=== PATIENT | female | born 1930 ===

== ENCOUNTER 2018-01-23 17:49 | Inpatient (IN) | payer MEDICARE, OTHER ==
[2018-01-23 17:50] VITALS: BMI 23.4
--- NOTE | 2018-01-23 18:47 | C.PDOC ---
History Of Present Illness 87 y/o F c PMHx pacemaker p/w back pain, headache, nausea, NBNB vomiting, and lightheadedness x 1 month. Patient states these are the symptoms she gets when her pacemaker is ready to be changed. Note that she has had 2 falls at home due to this lightheadedness. She notes she is due for changing it in about 4 days. Denies fever, dyspnea, chest pain, leg swelling. Time Seen by Provider: 01/23/18 18:24 Chief Complaint (Nursing): GI Problem Past Medical History Vital Signs: Last Vital Signs Temp 99.0 F 01/23/18 18:01 Pulse 65 01/23/18 18:01 Resp 18 01/23/18 18:01 BP 182/89 H 01/23/18 18:01 Pulse Ox 93 L 01/23/18 18:01 - Medical History PMH: Atrial Fibrillation, HTN, Hypercholesterolemia Denies: Arthritis, Asthma, CHF, COPD, Diabetes, Seizures Surgical History: Pacemaker (sinus node dysfunction) Denies: CABG Family History: States: CAD - Social History Hx Alcohol Use: No Hx Substance Use: No Review Of Systems Except As Marked, All Systems Reviewed And Found Negative. Constitutional: Negative for: Fever Cardiovascular: Negative for: Chest Pain Physical Exam - Physical Exam Additional Physical Exam Comments: Constitutional: No acute distress. Head: Normocephalic. Atraumatic. Eyes: PERRL. ENT: Moist mucous membranes. Neck: Supple. Cardiovascular: Regular rate. Radial pulse 2+ bilaterally. Chest: No tenderness. Respiratory: Normal breath sounds B/L. GI: Soft. Nontender. Nondistended. Back: No CVA tenderness. Musculoskeletal: No tenderness or swelling of extremities. Bilateral pitting edema. Skin: No rash. Neurologic: Alert, no focal deficit. ED Course And Treatment - Laboratory Results Result Diagrams: 01/23/18 18:56 01/23/18 18:56 O2 Sat by Pulse Oximetry: 93 Medical Decision Making Medical Decision Making: EKG Ventricularly paced rhythm, 65 bpm. CXR no acute disease. Dr. Moreno recommends Dr. Jensen for consultation. Dr. Jensen accepts consult, Dr. Pino accepts patient to his service. Disposition - Disposition Disposition: HOSPITALIZED Disposition Time: 19:05 Condition: GUARDED - Clinical Impression Clinical Impression: Frequent falls, Pacemaker at end of battery life
[2018-01-23 19:02] LABS: BASO # 0.1 K/uL (0.0-0.2); BASO % 1.9 % (0.0-2.0); EOS # 0.1 K/uL (0.0-0.7); EOS % 2.1 % (0.0-4.0); HEMOGLOBIN 12.5 g/dL (11.0-16.0); LYMPH # 1.1 K/uL (1.0-4.3); LYMPH % 27.6 % (20.0-40.0); MEAN CELL VOLUME 91.4 fL (81.0-99.0); MEAN CORPUSCULAR HEMOGLOBIN 28.9 pg (27.0-31.0); MEAN CORPUSCULAR HGB CONC 31.6 g/dL (33.0-37.0); MEAN PLATELET VOLUME 8.9 fL (7.2-11.7); MONO # 0.5 K/uL (0.0-0.8); MONO % 12.1 % (0.0-10.0); NEUT # 2.2 K/uL (1.8-7.0); NEUT % 56.3 % (50.0-75.0); NRBC % 0.6 % (0.0-2.0); RBC 4.35 Mil/uL (3.80-5.20); RED CELL DISTRIBUTION WIDTH 18.4 % (11.5-14.5); WHITE BLOOD COUNT 3.9 K/uL (4.8-10.8)
[2018-01-23 19:10] LABS: INR 1.2; PROTHROMBIN TIME 13.2 SECONDS (9.7-12.2)
[2018-01-23 19:19] LABS: ALB/GLOB RATIO 1.4 (1.0-2.1); ALBUMIN 4.3 g/dL (3.5-5.0); CALCIUM 9.5 mg/dl (8.6-10.4)
[2018-01-23 19:28] LABS: SQUAMOUS EPITHIAL < 1 /hpf (0-5); URINE BACTERIA OCC (<OCC); URINE BILIRUBIN NEGATIVE (NEGATIVE); URINE BLOOD 2+ (NEGATIVE); URINE CLARITY Clear (Clear); URINE COLOR Yellow (YELLOW); URINE GLUCOSE (UA) NORMAL (Normal); URINE LEUKOCYTE ESTERASE TRACE Leu/uL (Negative); URINE PROTEIN 2+ mg/dL (NEGATIVE); URINE UROBILINOGEN NORMAL mg/dL (0.2-1.0)
[2018-01-23 19:28] LABS: CK-MB 2.28 ng/mL (0.0-3.38); TROPONIN I 0.031 ng/mL (0.00-0.120)
[2018-01-24] MEDS: Enoxaparin 40 mg Syringe SC SCH (09:13)
[2018-01-24] MEDS ORDERED: Ergocalciferol 50,000 Intl Units Cap PO SCH (10:00)
[2018-01-24] MEDS ORDERED: Home Med 1 UNIT (Alendronate Sodium [Binosto] 70 MG) PO SCH (10:00)
--- NOTE | 2018-01-24 16:52 | RAD ---
Date of service: 01/23/2018 HISTORY: r/o PNA COMPARISON: No prior. FINDINGS: LUNGS: Right lower lobe infiltrate suspicious for pneumonia. PLEURA: No significant pleural effusion identified, no pneumothorax apparent. CARDIOVASCULAR: Cardiomegaly. No evidence of acute, significant cardiovascular disease. Position/ configuration of pacemaker Satisfactory. OSSEOUS STRUCTURES: No significant abnormalities. VISUALIZED UPPER ABDOMEN: Normal. OTHER FINDINGS: None. IMPRESSION: Right lower lobe infiltrate suspicious for pneumonia.
--- NOTE | 2018-01-25 06:53 | CP.PCM.PN ---
Subjective - Date & Time of Evaluation Date of Evaluation: 01/24/18 Time of Evaluation: 14:10 - Subjective Subjective: 87 y/o F c PMHx pacemaker p/w back pain, headache, nausea, NBNB vomiting, and lightheadedness x 1 month. Patient states these are the symptoms she gets when her pacemaker is ready to be changed. Note that she has had 2 falls at home due to this lightheadedness. She notes she is due for changing it in about 4 days. Denies fever, dyspnea, chest pain, leg swelling. - Medical History PMH: Atrial Fibrillation, HTN, Hypercholesterolemia Denies: Arthritis, Asthma, CHF, COPD, Diabetes, Seizures Surgical History: Pacemaker (sinus node dysfunction) Denies: CABG Family History: States: CAD - Social History Hx Alcohol Use: No Hx Substance Use: No Review Of Systems Except As Marked, All Systems Reviewed And Found Negative. Constitutional: Negative for: Fever Cardiovascular: Negative for: Chest Pain Physical Exam - Physical Exam Additional Physical Exam Comments: Constitutional: No acute distress. Head: Normocephalic. Atraumatic. Eyes: PERRL. ENT: Moist mucous membranes. Neck: Supple. Cardiovascular: Regular rate. Radial pulse 2+ bilaterally. Chest: No tenderness. Respiratory: Normal breath sounds B/L. GI: Soft. Nontender. Nondistended. Back: No CVA tenderness. Musculoskeletal: No tenderness or swelling of extremities. Bilateral pitting edema. Skin: No rash. Neurologic: Alert, no focal deficit. Objective - Vital Signs/Intake and Output Vital Signs (last 24 hours): Temp Pulse Resp BP Pulse Ox 98.1 F 64 20 160/93 H 97 01/25/18 04:25 01/25/18 04:25 01/25/18 04:25 01/25/18 04:25 01/25/18 04:25 Intake and Output: 01/24/18 01/25/18 18:59 06:59 Intake Total 200 120 Balance 200 120 - Medications Medications: Current Medications Amlodipine Besylate (Norvasc) 10 mg PO DAILY [facility] Last Admin: 01/24/18 09:13 Dose: 10 mg Atenolol (Tenormin) 25 mg PO DAILY [facility] Last Admin: 01/24/18 09:13 Dose: 25 mg Enoxaparin Sodium (Lovenox) 40 mg SC DAILY [facility] Last Admin: 01/24/18 09:13 Dose: 40 mg Ergocalciferol (Drisdol 50,000 Intl Units Cap) 1 cap PO QWK [facility] Last Admin: 01/24/18 09:13 Dose: 1 cap Hydrochlorothiazide (Microzide) 12.5 mg PO DAILY [facility] Last Admin: 01/24/18 09:13 Dose: 12.5 mg Losartan Potassium (Cozaar) 50 mg PO DAILY [facility] Last Admin: 01/24/18 09:13 Dose: 50 mg Pneumococcal Polyvalent Vaccine (Pneumovax 23 Vaccine) 0.5 ml IM .ONCE ONE Stop: 01/26/18 10:01 - Labs Labs: 01/23/18 18:56 01/23/18 18:56 PT 13.2 SECONDS (9.7-12.2) H 01/23/18 18:56 INR 1.2 01/23/18 18:56 APTT 33 SECONDS (21-34) 01/23/18 18:56 Assessment and Plan - Assessment and Plan (Free Text) Assessment: Patient is a difficult historian Family states due for Battery change January 27 Will contact EP-Dr. Junior Treadwell of HTN, Diasolic CHF ECHO 07/2016: Normal EF Stable
[2018-01-25] MEDS: Enoxaparin 40 mg Syringe SC SCH (09:55)
--- NOTE | 2018-01-25 21:37 | CP.PCM.PN ---
Subjective - Date & Time of Evaluation Date of Evaluation: 01/25/18 Time of Evaluation: 11:30 - Subjective Subjective: Patient seen and evaluated Denies chest pain and dyspnea - Medical History PMH: Atrial Fibrillation, HTN, Hypercholesterolemia Denies: Arthritis, Asthma, CHF, COPD, Diabetes, Seizures Surgical History: Pacemaker (sinus node dysfunction) Denies: CABG Family History: States: CAD - Social History Hx Alcohol Use: No Hx Substance Use: No Review Of Systems Except As Marked, All Systems Reviewed And Found Negative. Constitutional: Negative for: Fever Cardiovascular: Negative for: Chest Pain Physical Exam - Physical Exam Additional Physical Exam Comments: Constitutional: No acute distress. Head: Normocephalic. Atraumatic. Eyes: PERRL. ENT: Moist mucous membranes. Neck: Supple. Cardiovascular: Regular rate. Radial pulse 2+ bilaterally. Chest: No tenderness. Respiratory: Normal breath sounds B/L. GI: Soft. Nontender. Nondistended. Back: No CVA tenderness. Musculoskeletal: No tenderness or swelling of extremities. Bilateral pitting e adrian. Skin: No rash. Neurologic: Alert, no focal deficit. Assessment and Plan - Assessment and Plan (Free Text) Assessment: Hx of HTN, Diasolic CHF ECHO 07/2016: Normal EF Stable PPM battery change to be done during this admission Objective - Vital Signs/Intake and Output Vital Signs (last 24 hours): Temp Pulse Resp BP Pulse Ox 97.6 F 65 18 147/85 97 01/25/18 15:25 01/25/18 15:25 01/25/18 15:25 01/25/18 15:25 01/25/18 15:25 Intake and Output: 01/25/18 01/26/18 18:59 06:59 Intake Total 200 Balance 200 - Medications Medications: Current Medications Amlodipine Besylate (Norvasc) 10 mg PO DAILY [facility] Last Admin: 01/25/18 09:55 Dose: 10 mg Aspirin (Ecotrin) 81 mg PO DAILY [facility] Last Admin: 01/25/18 09:55 Dose: 81 mg Atenolol (Tenormin) 25 mg PO DAILY [facility] Last Admin: 01/25/18 09:55 Dose: 25 mg Enoxaparin Sodium (Lovenox) 40 mg SC DAILY [facility] Last Admin: 01/25/18 09:55 Dose: 40 mg Ergocalciferol (Drisdol 50,000 Intl Units Cap) 1 cap PO QWK [facility] Last Admin: 01/24/18 09:13 Dose: 1 cap Hydrochlorothiazide (Microzide) 12.5 mg PO DAILY [facility] Last Admin: 01/25/18 09:55 Dose: 12.5 mg Losartan Potassium (Cozaar) 50 mg PO DAILY [facility] Last Admin: 01/25/18 09:55 Dose: 50 mg Pneumococcal Polyvalent Vaccine (Pneumovax 23 Vaccine) 0.5 ml IM .ONCE ONE Stop: 01/26/18 10:01 - Labs Labs: 01/23/18 18:56 01/23/18 18:56 PT 13.2 SECONDS (9.7-12.2) H 01/23/18 18:56 INR 1.2 01/23/18 18:56 APTT 33 SECONDS (21-34) 01/23/18 18:56
--- NOTE | 2018-01-26 07:49 | HP ---
HISTORY OF PRESENT ILLNESS: The patient was admitted with chief complaint of dizziness, weakness, fatigue, low energy. pacemaker insertion . Patient came to the ER, advised admission. PHYSICAL EXAMINATION: GENERAL: The patient is awake, alert and oriented. VITAL SIGNS: Temperature 98, pulse 90. HEENT: Within normal limits. NECK: Supple. HEART: Regular. ABDOMEN: Soft. EXTREMITIES: No edema. IMPRESSION: functioning pacemaker. Admit to telemetry monitoring, cardiology evaluation for possible pacemaker change. Ko Pino MD
[2018-01-26] MEDS ORDERED: Pneumococcal 23-Valent Vaccine IM ONE (10:00)
--- NOTE | 2018-01-26 10:06 | CARD ---
APPROVED REPORT Date of service: 01/23/2018 EKG Measurement Heart [id number] <Conclusion> Ventricular-paced rhythm Abnormal ECG
--- NOTE | 2018-01-26 14:01 | CP.PCM.PN ---
Subjective - Date & Time of Evaluation Date of Evaluation: 01/26/18 Time of Evaluation: 09:10 - Subjective Subjective: PGY2 Medicine Note for Dr. Pino Patient seen and examined this morning at bedside. No acute events overnight. Patient states she is feeling better and only has mild back pain at this time. She is no longer experiencing light headedness, nausea, vomiting or a headache. Patient is pending pacemaker battery replacement this admission. Patient has no other complaints at this time. Objective - Vital Signs/Intake and Output Vital Signs (last 24 hours): Temp Pulse Resp BP Pulse Ox 97.6 F 65 20 152/84 H 97 01/26/18 07:35 01/26/18 07:35 01/26/18 07:35 01/26/18 07:35 01/26/18 07:35 Intake and Output: 01/26/18 01/26/18 06:59 18:59 Intake Total 450 Balance 450 - Medications Medications: Current Medications Amlodipine Besylate (Norvasc) 10 mg PO DAILY [facility] Last Admin: 01/26/18 10:30 Dose: 10 mg Aspirin (Ecotrin) 81 mg PO DAILY [facility] Last Admin: 01/26/18 10:30 Dose: 81 mg Atenolol (Tenormin) 25 mg PO DAILY [facility] Last Admin: 01/26/18 10:30 Dose: 25 mg Ergocalciferol (Drisdol 50,000 Intl Units Cap) 1 cap PO QWK [facility] Last Admin: 01/24/18 09:13 Dose: 1 cap Hydrochlorothiazide (Microzide) 12.5 mg PO DAILY [facility] Last Admin: 01/26/18 10:30 Dose: 12.5 mg Losartan Potassium (Cozaar) 50 mg PO DAILY [facility] Last Admin: 01/26/18 10:30 Dose: 50 mg - Labs Labs: 01/23/18 18:56 01/23/18 18:56 PT 13.2 SECONDS (9.7-12.2) H 01/23/18 18:56 INR 1.2 01/23/18 18:56 APTT 33 SECONDS (21-34) 01/23/18 18:56 - Constitutional Appears: Non-toxic, No Acute Distress - Head Exam Head Exam: NORMOCEPHALIC - Eye Exam Eye Exam: Normal appearance - ENT Exam ENT Exam: Mucous Membranes Moist - Neck Exam Neck Exam: absent: Lymphadenopathy - Respiratory Exam Respiratory Exam: Clear to Ausculation Bilateral, NORMAL BREATHING PATTERN. absent: Accessory Muscle Use, Rales, Rhonchi, Wheezes, Respiratory Distress - Cardiovascular Exam Cardiovascular Exam: REGULAR RHYTHM, +S1, +S2 - GI/Abdominal Exam GI & Abdominal Exam: Soft. absent: Distended, Firm, Guarding, Rigid, Tenderness - Extremities Exam Extremities Exam: absent: Calf Tenderness, Pedal Edema - Neurological Exam Neurological Exam: Alert, Awake, Oriented x3 - Psychiatric Exam Psychiatric exam: Normal Affect, Normal Mood - Skin Skin Exam: Dry, Warm Assessment and Plan - Assessment and Plan (Free Text) Plan: Malfunctioning Pacemaker Diastolic CHF (stable) Cardiology Consulted, Dr. Jensen * recommends battery change EP Cardiology Consulted. Dr. Pacheco ECHO 07/2016: normal EF Pro BNP 12,100 Patient is NPO at midnight for possible pacemaker battery change in the morning with Dr. Pacheco. Hypertension stable Continue Home Medications: * Norvasc 10mg PO daily * Aspirin 81mg PO daily * Atenolol 25mg PO daily * HCTZ 12.5mg PO daily * Losartan 50mg PO daily Transaminitis AST 63/ALT 82 (on 01/23) Alk Phos 147 (on 01/23) INR 1.2 no complaints at this time, will continue to monitor. All medical management per Dr. Alvarez Sifuentes Damon PGY2
--- NOTE | 2018-01-27 00:05 | CP.PCM.PN ---
Subjective - Date & Time of Evaluation Date of Evaluation: 01/26/18 Time of Evaluation: 17:20 - Subjective Subjective: Patient seen and evaluated No new cardiac events noted Objective - Vital Signs/Intake and Output Vital Signs (last 24 hours): Temp Pulse Resp BP Pulse Ox 97.9 F 67 20 147/81 96 01/26/18 15:05 01/26/18 16:00 01/26/18 15:05 01/26/18 15:05 01/26/18 15:05 - Medications Medications: Current Medications Amlodipine Besylate (Norvasc) 10 mg PO DAILY [facility] Last Admin: 01/26/18 10:30 Dose: 10 mg Aspirin (Ecotrin) 81 mg PO DAILY [facility] Last Admin: 01/26/18 10:30 Dose: 81 mg Atenolol (Tenormin) 25 mg PO DAILY [facility] Last Admin: 01/26/18 10:30 Dose: 25 mg Ergocalciferol (Drisdol 50,000 Intl Units Cap) 1 cap PO QWK [facility] Last Admin: 01/24/18 09:13 Dose: 1 cap Hydrochlorothiazide (Microzide) 12.5 mg PO DAILY [facility] Last Admin: 01/26/18 10:30 Dose: 12.5 mg Losartan Potassium (Cozaar) 50 mg PO DAILY [facility] Last Admin: 01/26/18 10:30 Dose: 50 mg - Labs Labs: 01/23/18 18:56 01/23/18 18:56 PT 13.2 SECONDS (9.7-12.2) H 01/23/18 18:56 INR 1.2 01/23/18 18:56 APTT 33 SECONDS (21-34) 01/23/18 18:56
[2018-01-27 07:21] LABS: BASO # 0.1 K/uL (0.0-0.2); BASO % 1.7 % (0.0-2.0); EOS # 0.3 K/uL (0.0-0.7); EOS % 6.5 % (0.0-4.0); HEMOGLOBIN 11.9 g/dL (11.0-16.0); LYMPH # 1.8 K/uL (1.0-4.3); LYMPH % 43.2 % (20.0-40.0); MEAN CELL VOLUME 90.3 fL (81.0-99.0); MEAN CORPUSCULAR HEMOGLOBIN 29.4 pg (27.0-31.0); MEAN CORPUSCULAR HGB CONC 32.6 g/dL (33.0-37.0); MEAN PLATELET VOLUME 8.9 fL (7.2-11.7); MONO # 0.6 K/uL (0.0-0.8); NEUT # 1.4 K/uL (1.8-7.0); NEUT % 33.6 % (50.0-75.0); NRBC % 0.3 % (0.0-2.0); RBC 4.04 Mil/uL (3.80-5.20); RED CELL DISTRIBUTION WIDTH 17.7 % (11.5-14.5); WHITE BLOOD COUNT 4.1 K/uL (4.8-10.8)
[2018-01-27 07:24] LABS: INR 1.1; PROTHROMBIN TIME 12.5 SECONDS (9.7-12.2)
[2018-01-27 07:50] VITALS: RESP 20
[2018-01-27 08:11] LABS: ALB/GLOB RATIO 1.2 (1.0-2.1); ALBUMIN 3.5 g/dL (3.5-5.0); CALCIUM 9.3 mg/dl (8.6-10.4)
--- NOTE | 2018-01-27 09:48 | CP.PCM.PN ---
Subjective - Date & Time of Evaluation Date of Evaluation: 01/27/18 Time of Evaluation: 09:48 - Subjective Subjective: PGY2 Medicine Note for Dr. Pino Patient seen and examined this morning at bedside. No acute events overnight. Patient is still feeling well with only a complaint of mid-thoracic back pain. She reports laying in bed most of the day and not getting up to move. She is without lightheadedness, nausea, vomiting or a headache. She is currently NPO for pacemaker batter replacement today at 2pm. Objective - Vital Signs/Intake and Output Vital Signs (last 24 hours): Temp Pulse Resp BP Pulse Ox 98 F 65 20 135/85 95 01/27/18 07:00 01/27/18 07:00 01/27/18 07:00 01/27/18 07:00 01/27/18 07:00 - Medications Medications: Current Medications Amlodipine Besylate (Norvasc) 10 mg PO DAILY [facility] Last Admin: 01/26/18 10:30 Dose: 10 mg Aspirin (Ecotrin) 81 mg PO DAILY [facility] Last Admin: 01/26/18 10:30 Dose: 81 mg Atenolol (Tenormin) 25 mg PO DAILY [facility] Last Admin: 01/26/18 10:30 Dose: 25 mg Ergocalciferol (Drisdol 50,000 Intl Units Cap) 1 cap PO QWK [facility] Last Admin: 01/24/18 09:13 Dose: 1 cap Hydrochlorothiazide (Microzide) 12.5 mg PO DAILY [facility] Last Admin: 01/26/18 10:30 Dose: 12.5 mg Losartan Potassium (Cozaar) 50 mg PO DAILY [facility] Last Admin: 01/26/18 10:30 Dose: 50 mg - Labs Labs: 01/27/18 06:58 01/27/18 06:58 PT 12.5 SECONDS (9.7-12.2) H 01/27/18 06:58 INR 1.1 01/27/18 06:58 APTT 29 SECONDS (21-34) 01/27/18 06:58 - Additional Findings Additional findings: - Constitutional Appears: Non-toxic, No Acute Distress - Head Exam Head Exam: NORMOCEPHALIC - Eye Exam Eye Exam: Normal appearance - ENT Exam ENT Exam: Mucous Membranes Moist - Neck Exam Neck Exam: absent: Lymphadenopathy - Respiratory Exam Respiratory Exam: Clear to Ausculation Bilateral, NORMAL BREATHING PATTERN. absent: Accessory Muscle Use, Rales, Rhonchi, Wheezes, Respiratory Distress - Cardiovascular Exam Cardiovascular Exam: REGULAR RHYTHM, +S1, +S2 - GI/Abdominal Exam GI & Abdominal Exam: Soft. absent: Distended, Firm, Guarding, Rigid, Tenderness - Extremities Exam Extremities Exam: absent: Calf Tenderness, Pedal Edema - Neurological Exam Neurological Exam: Alert, Awake, Oriented x3 - Psychiatric Exam Psychiatric exam: Normal Affect, Normal Mood - Skin Skin Exam: Dry, Warm Assessment and Plan - Assessment and Plan (Free Text) Plan: Malfunctioning Pacemaker Diastolic CHF (stable) Cardiology Consulted, Dr. Jensen * recommends battery change EP Cardiology Consulted. Dr. Pacheco ECHO 07/2016: normal EF Pro BNP 12,100 Trop 0.0310 Patient is scheduled for pacemaker battery change at 2pm with Dr. Pacheco. Hypertension stable Continue Home Medications: * Norvasc 10mg PO daily * Aspirin 81mg PO daily * Atenolol 25mg PO daily * HCTZ 12.5mg PO daily * Losartan 50mg PO daily Transaminitis (resolved) resolved no abdominal complaints at this time DISPO: Follow up cardio recs. Patient is stable for discharge once cleared by Cardio. All medical management per Dr. Alvarez Sifuentes Damon PGY2
[2018-01-27] MEDS ORDERED: Gentamicin 80 mg/2mL Inj. IVPB ONE ×2 (14:00)
[2018-01-27] MEDS ORDERED: Propofol 10 mg/ml Inj (20 ML) ONE (14:59)
[2018-01-27] MEDS ORDERED: ceFAZolin 1 gm FROZEN Premix 1 GM/50 ML ML IVPB ONE (15:08)
[2018-01-27] MEDS ORDERED: Lidocaine 1% 20 MG/2 ML PF AMP ONE ×2 (15:21→15:40)
[2018-01-27] MEDS ORDERED: Lidocaine 2% w Epi 1:200,000 Pf Inj ONE (15:23)
--- NOTE | 2018-01-27 16:34 | PCM.OP ---
Operative Report - Operative Report Date of Surgery/Procedure: 01/27/18 Time of Surgery/Procedure: 16:29 Surgeon: Dr. 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 Plan: --resume diet. --IV ancef 1 gram q 8 hours times two doses, first dose today at 2200. --dicharge in AM. --see operative note for discharge instructions
--- NOTE | 2018-01-27 23:22 | CP.PCM.PN ---
Subjective - Date & Time of Evaluation Date of Evaluation: 01/27/18 Time of Evaluation: 17:25 - Subjective Subjective: Patient seen and evaluated Denies chest pain and dyspnea - Medical History PMH: Atrial Fibrillation, HTN, Hypercholesterolemia Denies: Arthritis, Asthma, CHF, COPD, Diabetes, Seizures Surgical History: Pacemaker (sinus node dysfunction) Denies: CABG Family History: States: CAD - Social History Hx Alcohol Use: No Hx Substance Use: No Review Of Systems Except As Marked, All Systems Reviewed And Found Negative. Constitutional: Negative for: Fever Cardiovascular: Negative for: Chest Pain Physical Exam - Physical Exam Additional Physical Exam Comments: Constitutional: No acute distress. Head: Normocephalic. Atraumatic. Eyes: PERRL. ENT: Moist mucous membranes. Neck: Supple. Cardiovascular: Regular rate. Radial pulse 2+ bilaterally. Chest: No tenderness. Respiratory: Normal breath sounds B/L. GI: Soft. Nontender. Nondistended. Back: No CVA tenderness. Musculoskeletal: No tenderness or swelling of extremities. Bilateral pitting e adrian. Skin: No rash. Neurologic: Alert, no focal deficit. Assessment and Plan - Assessment and Plan (Free Text) Assessment: Hx of HTN, Diasolic CHF ECHO 07/2016: Normal EF Stable S/P generator change Objective - Vital Signs/Intake and Output Vital Signs (last 24 hours): Temp Pulse Resp BP Pulse Ox 97.4 F L 62 20 167/81 H 98 01/27/18 18:04 01/27/18 20:04 01/27/18 18:04 01/27/18 20:04 01/27/18 18:04 - Medications Medications: Current Medications Amlodipine Besylate (Norvasc) 10 mg PO DAILY [facility] Last Admin: 01/27/18 18:24 Dose: 10 mg Aspirin (Ecotrin) 81 mg PO DAILY [facility] Last Admin: 01/27/18 11:19 Dose: Not Given Atenolol (Tenormin) 25 mg PO DAILY [facility] Last Admin: 01/27/18 11:16 Dose: 25 mg Ergocalciferol (Drisdol 50,000 Intl Units Cap) 1 cap PO QWK [facility] Last Admin: 01/24/18 09:13 Dose: 1 cap Hydrochlorothiazide (Microzide) 12.5 mg PO DAILY [facility] Last Admin: 01/27/18 11:19 Dose: Not Given Cefazolin Sodium 1,000 mg/ (Sodium Chloride) 100 mls @ 100 mls/hr IVPB Q8H [facility]; Protocol Last Admin: 01/27/18 21:53 Dose: 100 mls/hr Losartan Potassium (Cozaar) 50 mg PO DAILY [facility] Last Admin: 01/27/18 11:16 Dose: 50 mg - Labs Labs: 01/27/18 06:58 01/27/18 06:58 PT 12.5 SECONDS (9.7-12.2) H 01/27/18 06:58 INR 1.1 01/27/18 06:58 APTT 29 SECONDS (21-34) 01/27/18 06:58
--- NOTE | 2018-01-28 00:35 | CON ---
DATE: 01/27/2018 CONSULT SERVICE: Clinical cardiac electrophysiology. REASON FOR CONSULTATION: Medronic dual-chamber pacemaker battery at end of service. PHYSICIAN PERFORMING CONSULT: Wagner Pacheco MD PHYSICIAN REQUESTING CONSULT: Vaughn Jensen MD HISTORY OF PRESENT ILLNESS: Ms. 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 The patient had been electively scheduled for her pacemaker battery exchange as her device is at elective replacement index today. As she is in the hospital, it was deemed most appropriate to do it today as well while she is an inpatient. She denies any fevers, chills. She has rare dizziness. FAMILY HISTORY AND SOCIAL HISTORY: Reviewed and noncontributory. REVIEW OF SYSTEMS: A comprehensive 10-point systems was performed and was seen above. OUTPATIENT MEDICATIONS: Include: 1. Losartan potassium/ hydrochlorothiazide 50/12.5 mg once daily. 2. Atenolol 25 mg once daily. ALLERGIES: TO IODINE. PHYSICAL EXAMINATION: VITAL SIGNS: The patient's blood pressure is 125/73, heart rate of 65, respiratory rate of 12. GENERAL: The patient is alert and oriented to person. NECK: Supple. PULMONARY: Lungs are clear. GASTROINTESTINAL: Abdomen is soft. EXTREMITIES: No edema. CHEST WALL: Right infraclavicular device site is well healed. NEUROLOGIC: Grossly intact. PSYCHIATRIC: Normal affect. SKIN: No rashes. DEVICE INTERROGATION: The patient has a Medtronic Sensia dual-chamber pacemaker that is now currently programmed to VVI 65 as it in ZULY mode for the last few weeks. For RV, she does have an underlying rhythm which is most likely an escape rhythm of about 30 beats per minute. Her RV pacing threshold is 1.25 volts at 0.4 msec. This appears to be stable from her prior assessments. In summary, Ms. Missy Mota has a Medtronic pacemaker generator that is at elective replacement index. She is for all intent and purposes, pacemaker dependent as she does have a slow but present underlying rhythm. I suspect that she had sinus node dysfunction as her EKG demonstrates what appears to be atrial standstill with RV pacing and retrograde P waves. I discussed with her and her family in detail regarding the risks and benefits of pacemaker generator change. We have discussed the risks, which include and are not limited to bleeding, infection. If she needs a new pacing wire, a new pacing lead, then the risks are slightly increased and include and are not limited to perforation of lung, perforation of blood vessel, need for emergent surgery, heart attack, stroke, dying, and the patient understands this and is willing to proceed. As such, we will proceed with pacemaker battery generator change today. Wagner Pacheco MD
[2018-01-28 04:11] VITALS: PULSE 60
--- NOTE | 2018-01-28 06:35 | OP ---
PROCEDURE DATE: 01/27/2018 OPERATION: Medtronic dual chamber pacemaker generator exchange. REFERRING PHYSICIAN: Chidi Moreno MD PRE-PROCEDURE DIAGNOSIS: Symptomatic irreversible bradycardia secondary to sinus node dysfunction with Medtronic dual-chamber pacemaker at elective replacement index. 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 DESCRIPTION OF PROCEDURE: After informed consent was obtained, the patient was brought back to the electrophysiology lab at [facility]. After sterile prep and drape, the right infraclavicular site was infiltrated with 2% lidocaine/epinephrine just on top of the preexisting incision scar. Just prior to this, IV Ancef was administered. Using blunt and sharp dissection, the generator was identified and carefully removed from the pocket. The patient is atrially dependent, and she was paced through pacing cables to the pre-existing atrial lead. The pocket was slightly expanded using blunt and sharp dissection to allow for the new pacemaker to be placed. Both the right atrial and right ventricular pre-existing leads were evaluated with the PSA system and were noted to have acceptable sensing, pacing thresholds, and impedances. After rinsing the pocket with an antibiotic solution, a new pacemaker was inserted into the pocket and the leads were connected. The patient was in an atrial paced V-sensed rhythm after this was performed. The incision was closed with 3 layers of subcutaneous, dissolving sutures. The wound was covered with Steri-Strips with a dressing on top. Postprocedure device interrogation demonstrated normal-functioning device with appropriate lead function. ASSESSMENT: Successful Medtronic dual-chamber pacemaker generator exchange (the patient is atrially dependent). DEVICE DETAILS: 1. Lead parameters: RA: Threshold 0.7 V at 0.5 msec, impedance of 398 Ohms, T-wave 2.2 mV. RV lead: Threshold 1.3 V at 0.5 msec, R-wave 10.1 mV, impedance 508 ohms. 2. Device details: Explanted device is a Medtronic [email or web address], product number [id number], serial number [id number], implanted on 11/12/2006. 3. New generator: Medtronic model number W1DR01, serial number [id number]. RA lead is a Medtronic model number KHH37NL30, serial number [id number]. Insertion date 08/23/2001. RV lead is a Medtronic [id number]. Serial number [id number], implanted 08/23/2001. POSTPROCEDURE INSTRUCTIONS: 1. Please resume diet. 2. Ancef 1 g every 8 hours x2 doses, to begin tonight at 10 p.m. DISCHARGE INSTRUCTIONS: 1. Please remove dressing in 7 days. 2. Please do not get dressing wet for 7 days. 3. The incision itself is covered with Steri-Strips. These will fall off naturally in 2 to 3 weeks. Please do not remove. 4. Please follow up in my office at [facility] in [place], [place]. Please call [phone] to schedule appointment. 5. If any questions, please call my office at [facility] at [phone]. 6. Please follow up with Dr. Chidi Moreno as scheduled. Wagner Pacheco MD
[2018-01-28 07:28] LABS: BASO # 0.1 K/uL (0.0-0.2); BASO % 1.4 % (0.0-2.0); EOS # 0.2 K/uL (0.0-0.7); EOS % 4.9 % (0.0-4.0); HEMOGLOBIN 11.9 g/dL (11.0-16.0); LYMPH # 1.3 K/uL (1.0-4.3); LYMPH % 27.1 % (20.0-40.0); MEAN CELL VOLUME 91.2 fL (81.0-99.0); MEAN CORPUSCULAR HEMOGLOBIN 29.4 pg (27.0-31.0); MEAN CORPUSCULAR HGB CONC 32.3 g/dL (33.0-37.0); MEAN PLATELET VOLUME 8.8 fL (7.2-11.7); MONO # 0.6 K/uL (0.0-0.8); MONO % 12.1 % (0.0-10.0); NEUT # 2.6 K/uL (1.8-7.0); NEUT % 54.5 % (50.0-75.0); NRBC % 0.2 % (0.0-2.0); RBC 4.05 Mil/uL (3.80-5.20); RED CELL DISTRIBUTION WIDTH 17.4 % (11.5-14.5); WHITE BLOOD COUNT 4.8 K/uL (4.8-10.8)
[2018-01-28 07:44] VITALS: BP 158/76; TEMP 98.3; O2SAT 97
[2018-01-28 07:49] LABS: ALB/GLOB RATIO 1.2 (1.0-2.1); ALBUMIN 3.7 g/dL (3.5-5.0); CALCIUM 9.4 mg/dl (8.6-10.4)
--- NOTE | 2018-01-28 11:20 | CP.PCM.PN ---
Subjective - Date & Time of Evaluation Date of Evaluation: 01/28/18 Time of Evaluation: 07:00 - Subjective Subjective: PGY2- Progress Note for Dr. Pino Patient seen and examined at bedside and in no acute distress. Patient has no chest pain s/p pacemaker battery replacement. Patient denies shortness of breath, abdominal pain, nausea, vomiting. Objective - Vital Signs/Intake and Output Vital Signs (last 24 hours): Temp Pulse Resp BP Pulse Ox 98.3 F 60 20 158/76 H 97 01/28/18 07:00 01/28/18 08:00 01/28/18 07:00 01/28/18 07:00 01/28/18 07:00 Intake and Output: 01/28/18 01/28/18 06:59 18:59 Intake Total 220 Balance 220 - Medications Medications: Current Medications Amlodipine Besylate (Norvasc) 10 mg PO DAILY [facility] Last Admin: 01/28/18 09:56 Dose: 10 mg Aspirin (Ecotrin) 81 mg PO DAILY [facility] Last Admin: 01/28/18 09:56 Dose: 81 mg Atenolol (Tenormin) 25 mg PO DAILY [facility] Last Admin: 01/28/18 09:56 Dose: 25 mg Ergocalciferol (Drisdol 50,000 Intl Units Cap) 1 cap PO QWK [facility] Last Admin: 01/24/18 09:13 Dose: 1 cap Hydrochlorothiazide (Microzide) 12.5 mg PO DAILY [facility] Last Admin: 01/28/18 09:56 Dose: 12.5 mg Cefazolin Sodium 1,000 mg/ (Sodium Chloride) 100 mls @ 100 mls/hr IVPB Q8H [facility]; Protocol Last Admin: 01/28/18 05:23 Dose: 100 mls/hr Losartan Potassium (Cozaar) 50 mg PO DAILY [facility] Last Admin: 01/28/18 09:56 Dose: 50 mg - Labs Labs: 01/28/18 07:19 01/28/18 07:19 PT 12.5 SECONDS (9.7-12.2) H 01/27/18 06:58 INR 1.1 01/27/18 06:58 APTT 29 SECONDS (21-34) 01/27/18 06:58 - Constitutional Appears: Non-toxic, No Acute Distress - Head Exam Head Exam: ATRAUMATIC, NORMAL INSPECTION, NORMOCEPHALIC - Eye Exam Eye Exam: EOMI, Normal appearance - ENT Exam ENT Exam: Mucous Membranes Moist - Respiratory Exam Respiratory Exam: Clear to Ausculation Bilateral, NORMAL BREATHING PATTERN - Cardiovascular Exam Cardiovascular Exam: REGULAR RHYTHM, RRR, +S1, +S2 - GI/Abdominal Exam GI & Abdominal Exam: Soft, Normal Bowel Sounds. absent: Tenderness - Extremities Exam Extremities Exam: Full ROM, Normal Inspection. absent: Pedal Edema - Neurological Exam Neurological Exam: Alert, Awake, Oriented x3 - Psychiatric Exam Psychiatric exam: Normal Affect, Normal Mood - Skin Skin Exam: Normal Color, Warm Additional comments: right side chest wall incision c/d/i dressing Assessment and Plan - Assessment and Plan (Free Text) Assessment: Malfunctioning Pacemaker Diastolic CHF (stable) pacemaker battery replaced by Dr. Pacheco on 01/27/18 Cardiology Consulted, Dr. Jensen EP Cardiology Consulted. Dr. Pacheco ECHO 07/2016: normal EF Pro BNP 12,100 Trop 0.0310 Patient is scheduled for pacemaker battery change at 2pm with Dr. Pacheco. Hypertension stable Continue Home Medications: * Norvasc 10mg PO daily * Aspirin 81mg PO daily * Atenolol 25mg PO daily * HCTZ 12.5mg PO daily * Losartan 50mg PO daily Transaminitis (resolved) resolved no abdominal complaints at this time DISPO: Patient is stable for discharge as per Dr. Pino and cardiology. Patient will need to follow up with cardio within one week. All medical management per Dr. Pino
[2018-01-30] MEDS ORDERED: Home Med 1 UNIT (Alendronate Sodium [Binosto] 70 MG) PO SCH (10:00)
== END 2018-01-28 12:27 | disposition home or self-care (01) | DRG 259 ==
LOC: C.ER 17:49 → C.9E 20:45 → C.6T 21:30
PROVIDERS: ADMIT Internal Medicine Pulmonary Disease; ATTEND Internal Medicine Pulmonary Disease
PROC: 0JPT0PZ Removal of Cardiac Rhythm Related Device from Trunk Subcutaneous Tissue and Fascia, Open Approach (ICD-10-PCS; principal; 2018-01-27)
PROC: 0JH606Z Insertion of Pacemaker, Dual Chamber into Chest Subcutaneous Tissue and Fascia, Open Approach (ICD-10-PCS; 2018-01-27)
DX: Z45.010 Encounter for checking and testing of cardiac pacemaker pulse generator [battery] (principal); I50.32 Chronic diastolic (congestive) heart failure; R42 Dizziness and giddiness; R29.6 Repeated falls; I11.0 Hypertensive heart disease with heart failure; E78.00 Pure hypercholesterolemia, unspecified; I48.91 Unspecified atrial fibrillation; R74.0 Nonspecific elevation of levels of transaminase and lactic acid dehydrogenase [LDH]